=== PATIENT | female | born 1995 | race Caucasian/White ===

== ENCOUNTER 2018-02-11 20:47 | Emergency (ER) | payer OTHER ==
[~2018-02-11] VITALS: Ht 149.9 cm; Wt 42.7 kg
[~2018-02-11 20:47] MED LIST: DOCUSATE SODIU100 MG PO; ENDOCET 5-3251 EACH PO; FLUOXETINE HCL20 MG PO; IBUPROFEN800 MG PO; PEPTO BISMOL262 MG PO; SPRINTEC1 EACH PO; ZOFRAN ODT4 MG PO
[2018-02-11] MEDS ORDERED: CARAFATE100 MG/ML PO (21:31)
[2018-02-11] MEDS ORDERED: ZANTAC150 MG PO (21:31)
[2018-02-11 21:45] VITALS: BP 133/85
== END 2018-02-11 21:50 | disposition home or self-care (01) ==
LOC: EME 20:47
DX: R13.10 Dysphagia, unspecified (principal); K21.9 Gastro-esophageal reflux disease without esophagitis
CPT/HCPCS: 99281; 99283